=== PATIENT | male | born 1930 | race Native Hawaiian/Other Pacific Islander ===

== ENCOUNTER 2016-11-12 14:57 | Emergency (ER) | payer OTHER ==
[~2016-11-12] VITALS: Ht 172.7 cm; Wt 77.1 kg
[2016-11-12 16:07] VITALS: BP 152/76; TEMP 98.1
== END 2016-11-12 16:31 | disposition home or self-care (01) ==
LOC: ED 14:57
PROC: 0CQ1XZZ Repair Lower Lip, External Approach (ICD-10-PCS; principal; 2016-11-12)
DX: S01.511A Laceration without foreign body of lip, initial encounter (principal); W18.09XA Striking against other object with subsequent fall, initial encounter; Y92.098 Other place in other non-institutional residence as the place of occurrence of the external cause
CPT/HCPCS: 99283

== ENCOUNTER 2016-11-13 09:08 | Emergency (ER) | payer OTHER ==
[~2016-11-13] VITALS: Ht 172.7 cm; Wt 77.1 kg
[2016-11-13 09:15] VITALS: BP 176/65; TEMP 99
== END 2016-11-13 10:09 | disposition home or self-care (01) ==
LOC: ED 09:08
PROC: 2W3EX1Z Immobilization of Right Hand using Splint (ICD-10-PCS; principal; 2016-11-13)
DX: S62.346A Nondisplaced fracture of base of fifth metacarpal bone, right hand, initial encounter for closed fracture (principal); W18.39XA Other fall on same level, initial encounter; Y92.098 Other place in other non-institutional residence as the place of occurrence of the external cause
CPT/HCPCS: 99283

== ENCOUNTER 2018-07-05 14:51 | Emergency (ER) | payer OTHER ==
[~2018-07-05] VITALS: Ht 170.2 cm; Wt 74.8 kg
[2018-07-05 17:48] VITALS: BP 138/84; TEMP 98
== END 2018-07-05 17:50 | disposition home or self-care (01) ==
LOC: ED 14:51
PROC: 0HQ1XZZ Repair Face Skin, External Approach (ICD-10-PCS; principal; 2018-07-05)
DX: S01.81XA Laceration without foreign body of other part of head, initial encounter (principal); W19.XXXA Unspecified fall, initial encounter; Y93.89 Activity, other specified; Y92.89 Other specified places as the place of occurrence of the external cause; S02.2XXA Fracture of nasal bones, initial encounter for closed fracture
CPT/HCPCS: 99283; J7040